=== PATIENT | male | born 1980 | race American Indian/Alaskan Native ===

== ENCOUNTER 2017-01-04 11:20 | Emergency (ER) | payer BC ==
[2017-01-04] MEDS ORDERED: TraMADol/Apap 37.5/325 mg Tab PO STA (11:44)
[2017-01-04] MEDS ORDERED: Lidocaine 5% Patch TD STA (11:44)
--- NOTE | 2017-01-04 11:49 | ED PDOC ---
Arrival/HPI - General Time Seen by Provider: 01/04/17 11:30 Historian: Patient - History of Present Illness Narrative History of Present Illness (Text): 01/04/17 11:44 A 36 year old male, whose past medical history includes chronic lower back pain , presents to the emergency department complaining of worsening left lower back pain for the past 5 days. Patient notes the pain is worse with movement but denies any radiation. He reports his job requires a lot of heavy lifting. Patient took over the counter medication, such as Tylenol, Motrin and Alleve, with no relief. Patient denies any fever, chills, nausea, vomiting, abdominal pain, urinary symptoms, hematuria, hematochezia, chest pain, shortness of breath , cough, headaches, dizziness or any other complaints. PMD: Dr. Yanez Time/Duration: Other (5 days) Symptom Course: Worsening Quality: Other Context: Home, Work Past Medical History - Provider Review Nursing Documentation Reviewed: Yes - Psychiatric Hx Substance Use: Yes - Surgical History Hx Musculoskeletal Surgery: Yes (left ankle surgery) - Anesthesia Hx Anesthesia: Yes Hx Anesthesia Reactions: No Hx Malignant Hyperthermia: No Family/Social History - Physician Review Nursing Documentation Reviewed: Yes Family/Social History: No Known Family HX Smoking Status: Heavy Smoker > 10 Cigarettes Daily Hx Alcohol Use: Yes Hx Substance Use: Yes Substance used: marijuana Allergies/Home Meds Allergies/Adverse Reactions: Allergies No Known Allergies Allergy (Verified 03/08/16 14:48) Review of Systems - Physician Review All systems were reviewed & negative as marked: Yes - Review of Systems Constitutional: absent: Fevers, Night Sweats Respiratory: absent: SOB, Cough Cardiovascular: absent: Chest Pain Gastrointestinal: absent: Abdominal Pain, Nausea, Vomiting, Hematochezia Genitourinary Male: absent: Dysuria, Frequency, Hematuria Musculoskeletal: Back Pain (Left lower back pain) Neurological: absent: Headache, Dizziness Physical Exam Vital Signs Reviewed: Yes Vital Signs Temp Pulse Resp BP Pulse Ox 01/04/17 11:30 98.3 F 63 18 117/75 100 Temperature: Afebrile Blood Pressure: Normal Pulse: Regular Respiratory Rate: Normal Appearance: Positive for: Well-Appearing, Non-Toxic, Comfortable Pain Distress: None Mental Status: Positive for: Alert and Oriented X 3 - Systems Exam Head: Present: Atraumatic, Normocephalic Pupils: Present: PERRL Conjunctiva: Present: Normal Mouth: Present: Moist Mucous Membranes Pharnyx: Present: Normal. No: ERYTHEMA, EXUDATE Respiratory/Chest: Present: Clear to Auscultation, Good Air Exchange. No: Respiratory Distress, Accessory Muscle Use Cardiovascular: Present: Regular Rate and Rhythm, Normal S1, S2. No: Murmurs Abdomen: Present: Normal Bowel Sounds. No: Tenderness, Distention, Peritoneal Signs Back: Present: Paraspinal Tenderness (Left lower paraspinal tenderness to palpation). No: Midline Tenderness, Pain with Leg Raise Upper Extremity: Present: Normal Inspection. No: Cyanosis, Edema Lower Extremity: Present: Normal Inspection. No: Edema Neurological: Present: GCS=15, CN II-XII Intact, Speech Normal Skin: Present: Warm, Dry, Normal Color. No: Rashes Psychiatric: Present: Alert, Oriented x 3, Normal Insight, Normal Concentration Medical Decision Making ED Course and Treatment: 01/04/17 11:44 Impression: A 36 year old male with chronic left lower back pain. Differential Diagnosis included but are not limited to: Musculoskeletal Plan: -- Toradol, Lidoderm and Tramadol -- Reassess and disposition Prior Visits: Notes and results from previous visits were reviewed. Patient last seen in the ED on 03/08/16 for lower back pain. Progress Notes: 01/04/17 11:55 Patient with longstanding musculoskeletal back pain with no signs or symptoms to suggest grave etiology. Patient seen before for the same - will d/c on nsaid , muscle relaxant, and lidoderm patch. Patient has been advised to follow up with primary care and recommend outpatient MRI, as it has never been done before for diagnostic purposes and further outpatient treatment. - Medication Orders Current Medication Orders: Discontinued Medications Ketorolac Tromethamine (Toradol) 60 mg IM STAT STA Stop: 01/04/17 11:44 Lidocaine (Lidoderm) 1 ea TD ONCE STA Stop: 01/04/17 11:45 Tramadol/Acetaminophen (Ultracet 37.5/325 Mg) 1 tab PO STAT STA Stop: 01/04/17 11:45 - Scribe Statement The provider has reviewed the documentation as recorded by the Timothyibdanni Johnson Provider Scribe Attestation: All medical record entries made by the Scribe were at my direction and personally dictated by me. I have reviewed the chart and agree that the record accurately reflects my personal performance of the history, physical exam, medical decision making, and the department course for this patient. I have also personally directed, reviewed, and agree with the discharge instructions and disposition. Disposition/Present on Arrival - Present on Arrival Any Indicators Present on Arrival: No History of DVT/PE: No History of Uncontrolled Diabetes: No Urinary Catheter: No History Surgical Site Infection Following: None - Disposition Have Diagnosis and Disposition been Completed?: Yes Diagnosis: Low back pain Disposition: HOME/ ROUTINE Disposition Time: 12:00 Patient Plan: Discharge Condition: GOOD Discharge Instructions (ExitCare): Core Strengthening Exercises (GEN), Back Exercises (ED), Acute Low Back Pain (ED) Additional Instructions: Take the medications as prescribed. Follow up with primary care. Recommend outpatient MRI of the lumbar spine to be arranged by your primary care doctor. Return to the emergency department if any new concerning symptoms. Prescriptions: Baclofen [Lioresal] 1 cap PO TID PRN #21 tab PRN Reason: Pain, Moderate (4-7) Lidocaine 5% [Lidoderm] 1 ea TD DAILY #10 patch Naproxen [Naprosyn] 500 mg PO BID PRN #30 tab PRN Reason: Pain Forms: WORK NOTE
[2017-01-04 11:55] VITALS: TEMP 98.3; O2SAT 100; BMI 23.3
[2017-01-05 00:38] VITALS: BP 120/72; PULSE 70; RESP 16
== END 2017-01-04 12:15 | disposition home or self-care (01) ==
LOC: ED 11:20
DX: M54.5 Low back pain (principal); F17.210 Nicotine dependence, cigarettes, uncomplicated
CPT/HCPCS: 96372; 99283; J1885

== ENCOUNTER 2017-12-19 11:25 | Emergency (ER) | payer BC, OTHER ==
--- NOTE | 2017-12-19 12:16 | ED PDOC ---
Arrival/HPI - General Time Seen by Provider: 12/19/17 11:32 Historian: Patient - History of Present Illness Narrative History of Present Illness (Text): 12/19/17 12:10 37 y/o male, no significant pmh, nkda, c/o request prophylatic treatment for gonorrhea and chlamydia. Pt. stated that he had unprotected sex about 1 week ago, been having dysuria, no nausea or vomiting, no fever or chills, no testicular pain or swelling, no palpitation, no rash, no other medical or psychological complaints. Past Medical History - Provider Review Nursing Documentation Reviewed: Yes - Psychiatric Hx Substance Use: Yes - Surgical History Hx Musculoskeletal Surgery: Yes (left ankle surgery) - Anesthesia Hx Anesthesia: Yes Hx Anesthesia Reactions: No Hx Malignant Hyperthermia: No Family/Social History - Physician Review Nursing Documentation Reviewed: Yes Family/Social History: Unknown Family HX Smoking Status: Heavy Smoker > 10 Cigarettes Daily Hx Alcohol Use: Yes Hx Substance Use: Yes Substance used: marijuana Allergies/Home Meds Allergies/Adverse Reactions: Allergies No Known Allergies Allergy (Verified 12/19/17 12:13) Review of Systems - Review of Systems Constitutional: absent: Fatigue, Fevers Eyes: absent: Vision Changes ENT: absent: Hearing Changes Respiratory: absent: SOB, Cough Cardiovascular: absent: Chest Pain Gastrointestinal: absent: Abdominal Pain, Nausea, Vomiting Genitourinary Male: Dysuria. absent: Frequency, Hematuria Musculoskeletal: absent: Arthralgias, Back Pain Skin: absent: Rash, Pruritis, Skin Lesions Psychiatric: absent: Anxiety, Depression, Suicidal Ideation Physical Exam Vital Signs Reviewed: Yes - Systems Exam Head: Present: Atraumatic, Normocephalic Pupils: Present: PERRL Extroacular Muscles: Present: EOMI Conjunctiva: Present: Normal Mouth: Present: Moist Mucous Membranes Neck: Present: Normal Range of Motion Respiratory/Chest: Present: Clear to Auscultation, Good Air Exchange. No: Respiratory Distress, Accessory Muscle Use Cardiovascular: Present: Regular Rate and Rhythm, Normal S1, S2. No: Murmurs Abdomen: No: Tenderness, Distention, Peritoneal Signs Genitourinary Male: Present: Normal External Genitalia, Circumcised Penis. No: Lesions, Penile Discharge, Testicle Tenderness, Penile Swelling, Masses, Erythema, Testicle Swelling Back: Present: Normal Inspection Upper Extremity: Present: Normal Inspection. No: Cyanosis, Edema Lower Extremity: Present: Normal Inspection. No: Edema Neurological: Present: GCS=15, CN II-XII Intact, Speech Normal Skin: Present: Warm, Dry, Normal Color. No: Rashes Psychiatric: Present: Alert, Oriented x 3, Normal Insight, Normal Concentration Medical Decision Making ED Course and Treatment: 12/19/17 12:18 -Pt. refused HIV and STD test, request rocephine and azithromycin as he feels the same as previous gonorrhea/chlamydia -Rocephine and azithromycin ordered. -UA ordered 12/19/17 12:57 -UA show mild UTI -I explained to the patient that he should notify all sexual partners for the STD testing or prophylatic treatment. -Discharge home with macrobid, education on notify all sexual partners for the STD testing or prophylatic treatment, stay hydrated, use condom in the the future, follow up with your own pmd within 2 days, return to the ER for any new or worsening signs or symptoms. - Lab Interpretations I have reviewed the lab results: Yes - PA / [employer] / Resident Statement MD/DO has reviewed & agrees with the documentation as recorded. Disposition/Present on Arrival - Present on Arrival Any Indicators Present on Arrival: No History of DVT/PE: No History of Uncontrolled Diabetes: No Urinary Catheter: No History of Decub. Ulcer: No History Surgical Site Infection Following: None - Disposition Have Diagnosis and Disposition been Completed?: Yes Diagnosis: History of unprotected sex, UTI (urinary tract infection) Disposition: HOME/ ROUTINE Disposition Time: 12:22 Patient Plan: Discharge Patient Problems: Current Active Problems Problem Status Onset History of unprotected sex Acute Condition: GOOD Additional Instructions: -Discharge home with macrobid, education on notify all sexual partners for the STD testing or prophylatic treatment, stay hydrated, use condom in the the future, follow up with your own pmd within 2 days, return to the ER for any new or worsening signs or symptoms. Prescriptions: Nitrofurantoin Macrocrystals [Macrobid] 100 mg PO BID #14 cap Referrals: America Yanez MD [Primary Care Provider] - Follow up with primary Forms: WORK NOTE
[2017-12-19 12:17] VITALS: RESP 18; BMI 23.1
[2017-12-19] MEDS ORDERED: cefTRIAXone (Rocephin) 250 mg Inj IM STA (12:19)
[2017-12-19 12:45] LABS: URINE BILIRUBIN NEGATIVE (NEGATIVE); URINE BLOOD NEGATIVE (NEGATIVE); URINE GLUCOSE (UA) NEGATIVE (NEGATIVE); URINE LEUKOCYTE ESTERASE SMALL Leu/uL (NEGATIVE); URINE PROTEIN NEGATIVE mg/dL (<30 mg/dL)
[2017-12-19 12:46] LABS: URINE APPEARANCE CLEAR (CLEAR); URINE COLOR YELLOW (YELLOW)
[2017-12-19 12:53] LABS: URINE BACTERIA MANY (NEG); URINE EPITHELIAL CELLS 0 - 2 /hpf (0-5); URINE RBC 0 - 2 /hpf (0-2)
[2017-12-19 14:02] VITALS: BP 120/69; PULSE 72; TEMP 98; O2SAT 98
== END 2017-12-19 14:02 | disposition home or self-care (01) ==
LOC: ED 11:25
DX: N39.0 Urinary tract infection, site not specified (principal)
CPT/HCPCS: 81001; 87086; 87491; 87591; 96372; 99283; J0696